=== PATIENT | female | born 2005 | race Caucasian/White ===

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

== ENCOUNTER 2023-06-23 07:57 | Outpatient (CLI) | payer OTHER, BC, SELFPAY ==
--- NOTE | 2023-06-23 08:09 | CT_ITS ---
WS: [id number] CT NECK TECHNIQUE: Contrast-enhanced CT of the neck with coronal and sagittal reformatted images. CLINICAL INFORMATION: DYSPHAGIA COMPARISON: None. DLP: 152.[address] scans at [facility] use at least one of these dose optimization techniques: automated e xposure control; mA and/or kV adjustment per patient size (includes targeted exams where dose is matc hed to clinical indication); or iterative reconstruction. FINDINGS: Partially visualized mastoid air cells and paranasal sinuses are well aerated. Normal posterior nasop harynx. Normal parapharyngeal fat. Slightly prominent submental lymph node measuring 8 mm in short ax is dimension. Submandibular glands are normal. Numerous normal sized submandibular lymph nodes. No ev idence of supraglottic or glottic mass. Normal subglottic airway. [place] tonsils appear normal. Normal parotid glands. Diffuse tiny innumerable thyroid nodules with mild thyroid enlargement. This can be further evaluated with ultrasound. Recommend correlation with t hyroid function studies. Lung apices are well aerated. No cervical lymphadenopathy. IMPRESSION: 1. A few prominent submental and submandibular lymph nodes not pathologically enlarged. No cervical lymphadenopathy. 2. Diffuse heterogeneous thyroid gland with tiny innumerable low-attenuation nodules. Recommend aronldo elation for thyroiditis and with thyroid function studies. Recommend further evaluation with thyroid ultrasound. 3. No evidence of supraglottic or glottic mass. 4. No other acute findings.
[2023-06-23] MEDS: iohexol 350 mg/mL 500 mL Btl (per mL) IV (08:35)
== END 2023-06-23 07:58 | disposition home or self-care (01) ==
PROVIDERS: PCP Family Medicine; Visit Provider Electrodiagnostic Medicine
DX: R13.10 Dysphagia, unspecified (principal); E04.2 Nontoxic multinodular goiter
CPT/HCPCS: 70491; Q9967